=== PATIENT | male | born 1990 | race Caucasian/White ===

== ENCOUNTER 2017-03-24 01:55 | Emergency (ER) | payer BC ==
[~2017-03-24] VITALS: Ht 177.8 cm; Wt 88.5 kg
[2017-03-24 01:59] VITALS: BP 140/86
--- NOTE | 2017-03-24 02:33 | NUR ---
TO ER BED 04
--- NOTE | 2017-03-24 02:35 | NUR ---
PATIENT IS A 27 Y/O MALE WHO PRESENTS TO THE ED C/O LACERATION. PT STATES, "I WAS A WORK AND IN A WHITE WHEN A METAL PIECE WENT THROUGH MY LEG." PT REPORTS 2/10 SHARP RIGHT BECKWITH PAIN THAT DOES NOT RADIATE. NOTED 2 CM PUNCTURE WOUND TO THE RIGHT BECKWITH, CONTROLLED BLEEDING. PT DENIES CP, SOB, N/V/D. PT AAOX4, RR EVEN/UNLABORED. PT REPOSITIONED FOR COMFORT, BED IN LOWEST POSITION. ER MD DR. FLORES NOTIFIED. WILL CONTINUE TO MONITOR.
[2017-03-24] MEDS ORDERED: CLINDAMYCIN 150 MG CAP PO ONE (03:30)
[2017-03-24] MEDS ORDERED: BACITRACIN OINT 500 UNITS/GM PKT TP ONE (03:30)
[2017-03-24 04:10] VITALS: BP 139/82
--- NOTE | 2017-03-24 04:10 | NUR ---
Patient discharged with v/s stable. Written and verbal after care instructions given and explained. Patient alert, oriented and verbalized understanding of instructions. Ambulatory with steady gait. All questions addressed prior to discharge. ID band removed. Patient advised to follow up with PMD. Rx of CLINDAMYCIN 300MG given. Patient educated on indication of medication including possible reaction and side effects. Opportunity to ask questions provided and answered.
== END 2017-03-24 04:10 | disposition home or self-care (01) ==
LOC: MED 01:55
DX: S81.831A Puncture wound without foreign body, right lower leg, initial encounter (principal); W22.8XXA Striking against or struck by other objects, initial encounter; Y93.89 Activity, other specified; Y92.69 Other specified industrial and construction area as the place of occurrence of the external cause; Y99.0 Civilian activity done for income or pay
CPT/HCPCS: 73590; 90471; 90715; 99284; Q0092